=== PATIENT | female | born 1985 | race American Indian/Alaskan Native ===

== ENCOUNTER 2017-01-19 18:05 | Emergency (ER) | payer MEDICAID ==
[2017-01-19 18:57] VITALS: BP 104/70
== END 2017-01-19 20:35 | disposition left against medical advice (07) ==
LOC: ED 18:05
DX: K08.89 Other specified disorders of teeth and supporting structures (principal); Z53.21 Procedure and treatment not carried out due to patient leaving prior to being seen by health care provider

== ENCOUNTER 2020-05-20 15:24 | Emergency (ER) | payer MEDICAID ==
[2020-05-20 15:48] VITALS: BP 111/71
--- NOTE | 2020-05-20 16:46 | Emergency Department Report ---
ED ENT HPI - General Chief complaint: Dental/Oral Stated complaint: TOOTH PAIN/RT HAND PAIN Time Seen by Provider: 05/20/20 16:41 Source: patient Mode of arrival: Ambulatory Limitations: No Limitations - History of Present Illness Initial comments: 34 y/o female come in for 1 week and right middle finger swelling. Patient reports that she had bitten down on a piece of hard candy and feels she has broken her last tooth on her upper jaw. She denies any fever but reports she has some gum swelling. MD complaint: tooth pain Onset/Timin -: week(s) Location: tooth # (1) Severity: severe Quality: stabbing, aching, sharp Consistency: constant Improves with: none Worsens with: eating Context- Dental: history of dental caries, poor dental care Associated Symptoms: gum swelling - Related Data Previous Rx's Medication Instructions Recorded Last Taken Type Acetaminophen/Codeine [Tylenol #3] 1 tab PO Q6H PRN #15 tab 11/20/15 Unknown Rx Penicillin Vk [Veetids TAB] 500 mg PO QID #40 tablet 11/20/15 Unknown Rx Ibuprofen [Motrin 800 MG tab] 800 mg PO Q8HR PRN #30 tablet 04/07/16 Unknown Rx Penicillin Vk [Veetids TAB] 250 mg PO QID #40 tablet 04/07/16 Unknown Rx Clindamycin [Clindamycin CAP] 300 mg PO Q8H 10 Days #30 cap 05/20/20 Unknown Rx Ibuprofen [Motrin 600 MG tab] 600 mg PO Q8H PRN #30 tablet 05/20/20 Unknown Rx Allergies Allergy/AdvReac Type Severity Reaction Status Date / Time venom-honey bee AdvReac Unknown Verified 05/20/20 15:45 [bee venom (honey bee)] ED Dental HPI - General Chief complaint: Dental/Oral Stated complaint: TOOTH PAIN/RT HAND PAIN Time Seen by Provider: 05/20/20 16:41 Source: patient Mode of arrival: Ambulatory Limitations: No Limitations - Related Data Previous Rx's Medication Instructions Recorded Last Taken Type Acetaminophen/Codeine [Tylenol #3] 1 tab PO Q6H PRN #15 tab 11/20/15 Unknown Rx Penicillin Vk [Veetids TAB] 500 mg PO QID #40 tablet 11/20/15 Unknown Rx Ibuprofen [Motrin 800 MG tab] 800 mg PO Q8HR PRN #30 tablet 04/07/16 Unknown Rx Penicillin Vk [Veetids TAB] 250 mg PO QID #40 tablet 04/07/16 Unknown Rx Clindamycin [Clindamycin CAP] 300 mg PO Q8H 10 Days #30 cap 05/20/20 Unknown Rx Ibuprofen [Motrin 600 MG tab] 600 mg PO Q8H PRN #30 tablet 05/20/20 Unknown Rx Allergies Allergy/AdvReac Type Severity Reaction Status Date / Time venom-honey bee AdvReac Unknown Verified 05/20/20 15:45 [bee venom (honey bee)] ED Review of Systems ROS: Stated complaint: TOOTH PAIN/RT HAND PAIN Other details as noted in HPI Comment: All other systems reviewed and negative ED Past Medical Hx - Past Medical History Previous Medical History?: No - Surgical History Past Surgical History?: No - Social History Smoking Status: Current Every Day Smoker Substance Use Type: Alcohol - Medications Home Medications: Home Medications Medication Instructions Recorded Confirmed Last Taken Type Acetaminophen/Codeine [Tylenol #3] 1 tab PO Q6H PRN #15 tab 11/20/15 Unknown Rx Penicillin Vk [Veetids TAB] 500 mg PO QID #40 tablet 11/20/15 Unknown Rx Ibuprofen [Motrin 800 MG tab] 800 mg PO Q8HR PRN #30 tablet 04/07/16 Unknown Rx Penicillin Vk [Veetids TAB] 250 mg PO QID #40 tablet 04/07/16 Unknown Rx Clindamycin [Clindamycin CAP] 300 mg PO Q8H 10 Days #30 cap 05/20/20 Unknown Rx Ibuprofen [Motrin 600 MG tab] 600 mg PO Q8H PRN #30 tablet 05/20/20 Unknown Rx ED Physical Exam - General Limitations: No Limitations General appearance: alert, in no apparent distress - Head Head exam: Present: atraumatic, normocephalic - Eye Eye exam: Present: normal appearance - Expanded ENT Exam Expanded Teeth exam: Present: dental caries, fractured tooth # (1), dental tenderness # (1), gingival enlargement - Neck Neck exam: Present: normal inspection, full ROM - Neurological Exam Neurological exam: Present: alert, oriented X3 - Psychiatric Psychiatric exam: Present: normal affect, normal mood - Skin Skin exam: Present: warm, dry, intact, normal color. Absent: rash ED Course Vital Signs 05/20/20 15:47 Temperature 98.1 F Pulse Rate 82 Respiratory 18 Rate Blood Pressure 111/71 [Right] O2 Sat by Pulse 98 Oximetry ED Medical Decision Making - Medical Decision Making 34 y/o female come in for 1 week and right middle finger swelling. Patient reports that she had bitten down on a piece of hard candy and feels she has broken her last tooth on her upper jaw. She denies any fever but reports she has some gum swelling. Will place patient on Clindamycin 300mg po q8h times 10 days. Follow up with your dentist. Critical care attestation.: If time is entered above; I have spent that time in minutes in the direct care of this critically ill patient, excluding procedure time. ED Disposition Clinical Impression: Dental abscess Disposition: TO HOME OR SELFCARE Is pt being admited?: No Does the pt Need Aspirin: No Condition: Stable Instructions: Dental Abscess (ED) Additional Instructions: Complete antibiotics as prescribed take pain medication as needed. Follow up with your Dentist. Prescriptions: Clindamycin [Clindamycin CAP] 300 mg PO Q8H 10 Days #30 cap Ibuprofen [Motrin 600 MG tab] 600 mg PO Q8H PRN #30 tablet PRN Reason: Pain Referrals: PRIMARY CARE, [Primary Care Provider] - 3-5 Days [facility] [Outside] - 3-5 Days [facility] [Outside] - 3-5 Days Forms: Work/School Release Form(ED)
== END 2020-05-20 16:56 | disposition home or self-care (01) ==
LOC: ED 15:24
DX: K04.7 Periapical abscess without sinus (principal); F17.200 Nicotine dependence, unspecified, uncomplicated; Z79.1 Long term (current) use of non-steroidal anti-inflammatories (NSAID); Z79.2 Long term (current) use of antibiotics; Z79.899 Other long term (current) drug therapy; Z91.030 Bee allergy status
CPT/HCPCS: 99282